=== PATIENT | male | born 2000 | race Caucasian/White ===

== ENCOUNTER 2023-04-01 18:33 | Emergency (ER) | payer BC ==
[~2023-04-01] VITALS: Ht 170.2 cm; Wt 59.0 kg
[2023-04-01] MEDS ORDERED: CYCLOBENZAPRINE 10 MG TABLET ONE (19:57)
[2023-04-01] MEDS ORDERED: ACETAMINOPHEN ES 500 MG TABLET ONE (19:57)
[2023-04-01] MEDS ORDERED: ACETAMINOPHEN ES 500 MG TABLET PO ONE (20:00)
[2023-04-01] MEDS ORDERED: CYCLOBENZAPRINE 10 MG TABLET PO ONE (20:00)
[2023-04-01] MEDS ORDERED: CYCL10TA9 PO (21:53)
[2023-04-01 22:02] VITALS: BP 130/78; TEMP 98.1; O2SAT 97
== END 2023-04-01 22:02 | disposition home or self-care (01) ==
LOC: ER 18:37
DX: M25.531 Pain in right wrist (principal); R51.9 Headache, unspecified; M54.2 Cervicalgia; V43.52XA Car driver injured in collision with other type car in traffic accident, initial encounter; Y93.89 Activity, other specified; Y92.89 Other specified places as the place of occurrence of the external cause; Y99.8 Other external cause status
CPT/HCPCS: 70450-TC; 72125-TC; 73110